=== PATIENT | male | born 2000 ===

== ENCOUNTER 2020-05-28 23:39 | Emergency (ER) | payer OTHER, MEDICAID, SELFPAY ==
[2020-05-28 23:42] VITALS: BP 121/74; PULSE 109; RESP 18; TEMP 37.1; O2SAT 98; BMI 31.5
--- NOTE | 2020-05-29 00:24 | ED_ITS ---
HPI - Allergic Reaction General Chief complaint: Allergic Reaction <DALLAS Shepherd Last Filed: 05/29/20 00:55> Stated complaint: Allergic Reaction <DALLAS Shepherd Last Filed: 05/29/20 00:55> Time Seen by Provider: 05/29/20 00:17 <DALLAS Shepherd Last Filed: 05/29/20 00:55> Source: patient <DALLAS Shepherd Last Filed: 05/29/20 00:55> Mode of arrival: ambulatory <DALLAS Shepherd Last Filed: 05/29/20 00:55> Limitations: no limitations <DALLAS Shepherd Last Filed: 05/29/20 00:55> History of Present Illness HPI narrative: 19-year-old male with past medical history of asthma and ADHD presents with hives to his chest, abdomen and back. He does not report any new foods but does report new skin care products. Does not have any difficulty breathing, wheezing or stridor, no difficulty swallowing, denies chest pain or pressure, palpitations, abdominal pain, abdominal distention, dysuria, hematuria, and swelling. <DALLAS Shepherd Last Filed: 05/29/20 00:55> Related Data Home medications: Previous Rx's Medication Instructions Recorded diphenhydramine HCl [Benadryl] 50 mg PO Q6H PRN #14 cap 05/29/20 famotidine [Pepcid] 20 mg PO BID 5 Days #10 tab 05/29/20 prednisone 40 mg PO DAILY 5 Days #10 tab 05/29/20 <DALLAS Shepherd Last Filed: 05/29/20 00:55> Allergies/adverse reactions: Allergies Allergy/AdvReac Type Severity Reaction Status Date / Time No Known Allergies Allergy Verified 05/28/20 23:49 <DALLAS Shepherd Last Filed: 05/29/20 00:55> Review of Systems Review of Systems: Constitutional: No Fever, No Chills ENT/Mouth: No oral swelling, No Hoarseness, No Swallowing Difficulty : No Eye Pain, No Swelling, No Redness Cardiovascular: No Chest Pain, No SOB Respiratory: No Cough, No Sputum, No Wheezing, No Smoke Exposure, No Dyspnea Gastrointestinal: No Nausea, No Vomiting, No Diarrhea, No abdominal Pain Genitourinary: No Dysuria, No Urinary Frequency, No Hematuria Musculoskeletal: No joint pain, No Myalgias, No Joint Swelling Skin: No Skin Lesions, positive rash Neuro: No Weakness, No Numbness, No Headache Psych: No Anxiety/Panic, No Depression Heme/Lymph: No Bruising, No Lymphadenopathy Endocrine: No Polyuria, No Polydipsia <Brenda Rosa NP - Last Filed: 05/29/20 00:55> Yes all other systems are reviewed and are negative <Brenda Rosa NP - Last Filed: 05/29/20 00:55> [facility] Past Medical History Attestation statement: The following information was validated with the patient. <Brenda Rosa NP - Last Filed: 05/29/20 00:55> Medical History: Medical History ADHD <Brenda Rosa NP - Last Filed: 05/29/20 00:55> Social History Social History: Social History Smoking Status: Never smoker Use of substances other than those prescribed or required for medical reasons: Yes Substance Use Type: Marijuana Substance Use Frequency: Daily Advance Directives: No Advance Directives Information Provided: No <Brenda Rosa NP - Last Filed: 05/29/20 00:55> Physical Exam Vital Signs: Vital Signs: Last Vital Signs Temp 98.7 F 05/28/20 23:42 Pulse 109 H 05/28/20 23:42 Resp 18 05/28/20 23:42 BP 121/74 05/28/20 23:42 Pulse Ox 98 05/28/20 23:42 Body Mass Index 31.5 <Brenda Rosa NP - Last Filed: 05/29/20 00:55> Vital Signs: Last Vital Signs Temp 98.7 F 05/28/20 23:42 Pulse 109 H 05/28/20 23:42 Resp 18 05/28/20 23:42 BP 121/74 05/28/20 23:42 Pulse Ox 98 05/28/20 23:42 Body Mass Index 31.5 <Stephanie Williamson MD - Last Filed: 05/29/20 07:42> Appearance: Alert. Oriented X3. No acute distress. Eyes: Pupils equal, round and reactive to light. ENT: Pharynx normal. No oropharyngeal swelling. Neck: Normal inspection. Neck supple. No stridor noted trachea. CVS: Normal heart rate and rhythm. Pulses normal. Respiratory: No respiratory distress. Breath sounds normal. Abdomen: Soft and nontender. Skin: Positive urticaria and hives to the abdomen and back. Skin warm and dry. Normal skin color. Normal skin turgor. Extremities: No lower extremity edema. Neuro: No motor deficit. No sensory deficit. <DALLAS Shepherd Last Filed: 05/29/20 00:55> Course Course Course Narrative: 19-year-old male presents with urticaria and hives after using [employer] soap. Plan of care is for prednisone, Benadryl and Pepcid p.o.. Patient does not have any adventitious lung sounds, no difficulty swallowing, managing secretions, speaking in full sentences. Approximately 45 minutes after p.o. medications, patient states to feel better, hives diminished, plan of care to discharge home. Will prescribe p.o. prednisone Benadryl and Pepcid for home use. Patient does understand that he will stop using the soap. Patient verbalized understanding of and agrees plan of care discharge home. <Brenda Rosa NP - Last Filed: 05/29/20 00:55> MDM - Allergic Reaction Differential Diagnosis Differential diagnosis: Likely allergic reaction, contact dermatitis, adverse reaction to drug and urticaria <DALLAS Shepherd Last Filed: 05/29/20 00:55> Medical Records Attestation: I reviewed the patient's medical records. <DALLAS Shepherd Last Filed: 05/29/20 00:55> Discharge Plan Discharge Clinical Impression: Urticaria Allergic reaction Qualifiers: Encounter type: initial encounter Qualified Code(s): T78.40XA - Allergy, unspecified, initial encounter <DALLAS Shepherd Last Filed: 05/29/20 00:55> Patient Disposition: Home, Self-Care <DALLAS Shepherd Last Filed: 05/29/20 00:55> Instructions: General Allergic Reaction (ED) <DALLAS Shepherd Last Filed: 05/29/20 00:55> Additional Instructions: You were evaluated for hives after using a new soap. Please stop using this soap. You may consider following up with your primary care physician for allergy testing. Please take prednisone, Benadryl, and Pepcid as directed. If you notice shortness of breath, wheezing or stridor please return to the emergency department immediately. Thank you for choosing this emergency department for evaluation. Please follow-up with primary care physician as needed. Return to the emergency department for any new, concerning, or worsening symptoms. <Brenda Rosa NP - Last Filed: 05/29/20 00:55> Prescriptions: New prednisone 20 mg tablet 40 mg PO DAILY 5 Days Qty: 10 RF: 0 diphenhydramine HCl [Benadryl] 25 mg capsule 50 mg PO Q6H PRN (Reason: allergic reaction) Qty: 14 RF: 0 famotidine [Pepcid] 20 mg tablet 20 mg PO BID 5 Days Qty: 10 RF: 0 <Brenda Rosa NP - Last Filed: 05/29/20 00:55> Interventions: ED Discharge Assessment Last Done: 05/29/20 01:00 <Brenda Rosa NP - Last Filed: 05/29/20 00:55> Discharge Date/Time: 05/29/20 01:09 <Brenda Rosa NP - Last Filed: 05/29/20 00:55>
[2020-05-29] MEDS: predniSONE 20 MG TABLET 60 MG PO (00:28)
[2020-05-29] MEDS: diphenhydrAMINE HCL 25 MG TABLET 50 MG PO (00:28)
[2020-05-29] MEDS: Famotidine 20 MG TABLET PO (00:28)
== END 2020-05-29 01:09 | disposition home or self-care (01) ==
PROVIDERS: Emergency Provider Student in an Organized Health Care Education/Training Program; PCP Pediatrics
DX: L50.0 Allergic urticaria (principal); Z79.899 Other long term (current) drug therapy
CPT/HCPCS: 99283; 99284; Q0163

== ENCOUNTER 2024-01-13 18:33 | Emergency (ER) | payer OTHER, MEDICAID, SELFPAY ==
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
[2024-01-13 18:49] VITALS: BP 136/80; PULSE 120; O2SAT 99
[2024-01-13 18:52] VITALS: BP 137/72; PULSE 108; RESP 20; TEMP 36.9; O2SAT 97; BMI 26.6
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
[2024-01-13] MEDS: Ibuprofen 600 MG TABLET PO (19:34)
[2024-01-13 19:36] VITALS: BP 135/74; PULSE 92; RESP 16; TEMP 36.3; O2SAT 96
[2024-01-13 20:52] VITALS: BP 135/74; PULSE 92; RESP 16; TEMP 36.3; O2SAT 96
== END 2024-01-13 20:52 | disposition home or self-care (01) ==
PROVIDERS: Emergency Provider Emergency Medicine; PCP Internal Medicine
DX: S60.212A Contusion of left wrist, initial encounter (principal); V43.52XA Car driver injured in collision with other type car in traffic accident, initial encounter; Y93.9 Activity, unspecified; Y92.488 Other paved roadways as the place of occurrence of the external cause; Y99.8 Other external cause status
CPT/HCPCS: 73100; 99283; 99284